=== PATIENT | female | born 1965 | race Two or more races ===

== ENCOUNTER 2017-07-28 13:16 | Emergency (ER) | payer SELFPAY ==
[2017-07-28] MEDS ORDERED: LORAZEPAM 1 MG TABLET PO ONE (13:39)
--- NOTE | 2017-07-28 15:53 | ER Document Report ---
ED General - General Chief Complaint: Anxiety Stated Complaint: PANIC ATTACK, ANXIOUS Time Seen by Provider: 07/28/17 13:39 Mode of Arrival: Ambulatory Information source: Patient Notes: Patient states that her recently and was buried yesterday. She has been very anxious and unable to sleep. Severe. They are made worse by stress and better without stress. There is no known radiation symptoms. They have been constant. She has no previous history of psychiatric care. TRAVEL OUTSIDE OF THE [place] IN LAST 30 DAYS: No - Related Data Allergies/Adverse Reactions: No Known Allergies Allergy (Verified 07/28/17 13:34) Past Medical History - General Information source: Patient - Social History Smoking Status: Current Every Day Smoker Chew tobacco use (# tins/day): No Frequency of alcohol use: None Drug Abuse: None Family History: Reviewed & Not Pertinent Patient has suicidal ideation: Yes - pt just passed Patient has homicidal ideation: No Renal/ Medical History: Denies: Hx Peritoneal Dialysis Musculoskeltal Medical History: Reports Hx Arthritis - RA Past Surgical History: Reports: Hx Section - 2 - Immunizations Hx Diphtheria, Pertussis, Tetanus Vaccination: Yes Review of Systems - Review of Systems Constitutional: denies: Chills, Fever Cardiovascular: denies: Chest pain, Palpitations Respiratory: denies: Cough, Short of breath Physical Exam - Vital signs Vitals: Temp Pulse Resp BP Pulse Ox 98.1 F 91 22 H 126/78 H 100 07/28/17 13:22 07/28/17 13:22 07/28/17 13:22 07/28/17 13:22 07/28/17 13:22 Interpretation: Normal - General General appearance: Appears well, Alert - HEENT Head: Normocephalic, Atraumatic Eyes: Normal Pupils: PERRL - Respiratory Respiratory status: No respiratory distress Chest status: Nontender Breath sounds: Normal Chest palpation: Normal - Cardiovascular Rhythm: Regular Heart sounds: Normal auscultation Murmur: No - Abdominal Inspection: Normal Distension: No distension Bowel sounds: Normal Tenderness: Nontender Organomegaly: No organomegaly - Back Back: Normal, Nontender - Extremities General upper extremity: Normal inspection, Nontender, Normal color, Normal ROM , Normal temperature General lower extremity: Normal inspection, Nontender, Normal color, Normal ROM , Normal temperature, Normal weight bearing. No: Eloise's sign - Neurological Neuro grossly intact: Yes Cognition: Normal Orientation: AAOx4 Mariely Coma Scale Eye Opening: Spontaneous Mari[place] Coma Scale Verbal: Oriented [place] Coma Scale Motor: Obeys Commands [place] Coma Scale Total: 15 Speech: Normal Motor strength normal: LUE, RUE, LLE, RLE Sensory: Normal - Psychological Associated symptoms: Agitated, Anxious - Skin Skin Temperature: Warm Skin Moisture: Dry Skin Color: Normal Course - Re-evaluation Re-evalutation: 07/28/17 15:50 Patient was seen by [facility]. Please see their note for further details - Vital Signs Vital signs: Temp Pulse Resp BP Pulse Ox 98.1 F 91 18 126/78 H 100 07/28/17 13:22 07/28/17 13:22 07/28/17 14:09 07/28/17 13:22 07/28/17 13:22 Discharge - Discharge Clinical Impression: Anxiety Condition: Stable Disposition: HOME, SELF-CARE Instructions: Anxiety ([facility]) Prescriptions: Buspirone HCl [Buspar 5 mg Tablet] 1 tab PO DAILY 30 Days #45 tab Citalopram Hydrobromide [Celexa 20 mg Tablet] 20 mg PO DAILY #30 tablet Forms: Return to Work
--- NOTE | 2017-07-28 15:53 | PSYCHOLOGICAL NOTE ---
Psych Note - Psych Note Psych Note: Reason for consult: Bereavement Consent permissions: Sister, Elodia, at bedside per patient's request pt states that her past away on wednesday07/21/17 from the flu that turned into sepsis and she hasn't been able to eat or sleep much since then. pt states that she woke up and went into the dining room and started having trouble breathing and moving. pt states that her hands and feet went numb and she felt frozen. pt states that she was unable to stop shaking and started getting chills. pts father in law states that the pt has lost 8 lbs since last week. Patient denies wanting to confirms very despondent. Patient disclosed that she has had no sleep since last Wednesday (8 days ago) and has not been eating. Patient's from the flu; "he was my soul mate... Together 16 years.. We worked together, Played together, never a part. " Last night was the cremation. This morning when she awoke she had a panic attack. Patient confirms she has never had a panic attack before; "I was shaking...could hardly breathe." Patient denies history of mental health concerns. Patient's sister disclosed that she is currently staying with her the patient until Wednesday. Their grandparents are still in town is unknown when they will be leaving however the patient's daughters live locally. They have already been discussing the possibility of the patient moving in with her daughter. 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 She reports they have a couple of friends are auctioneers that will be helping to assist selling off surplus inventory. Patient is alert and orientated to person, place, time and circumstance. Mood is dysphoric with flat affect. Patient denies suicidal and homicidal ideation. Delusions are absent behaviors congruent with intact reality based presentation i.e. organized and linear thought processes. Conversational speech was low but easy to understand. Eye contact was good. Attention and concentration was good. Intellectual abilities appear to be within the average range. Insight, judgment, impulse control are good. Medication recommendations per [facility]'s contracted psychiatrist, MD Heraclio are as follows: 1. Celexa 20 mg daily 2. BuSpar 5 mg every morning 3. BuSpar 10 mg nightly V62.82 (Z63.4) uncomplicated bereavement Impression\\plan: Patient is considered psychiatrically clear. Patient denies suicidal and homicidal ideation. Patient is going through stages of grief; 7 days ago. Patient experienced first panic attack this morning. Patient has strong family support system. Clinician reviewed stages of grief, options of outpatient therapy, and deep breathing for future panic attacks. Patient was provided outpatient resource list and [address] stages of [address]. Nix was consulted and the care management this patient; attending physician is agreement with recommendations and disposition.
[2017-07-28 15:57] VITALS: BP 125/65
== END 2017-07-28 16:22 | disposition home or self-care (01) ==
LOC: ER 13:16
DX: F41.9 Anxiety disorder, unspecified (principal); F41.0 Panic disorder [episodic paroxysmal anxiety]; F17.200 Nicotine dependence, unspecified, uncomplicated
CPT/HCPCS: 99284